=== PATIENT | male | born 1960 | race Caucasian/White ===

== ENCOUNTER 2020-12-26 12:29 | Emergency (ER) | payer OTHER ==
[2020-12-26 13:59] LABS: HEMOGLOBIN 14.6 gm/dl (14.0-17.5); RED BLOOD COUNT 4.81 M/UL (4.20-5.50); WHITE BLOOD COUNT 13.3 K/UL (4.5-11.0)
[2020-12-26] MEDS ORDERED: IBUPROFEN800 MG PO (15:55)
[2020-12-26] MEDS ORDERED: FLOMAX 0.4 MG0.4 MG PO (15:55)
[2020-12-26] MEDS ORDERED: ONDANSETRON ODT4 MG SL (15:55)
== END 2020-12-26 17:00 | disposition home or self-care (01) ==
LOC: ER1 12:29
PROVIDERS: Physician Assistant
DX: N13.2 Hydronephrosis with renal and ureteral calculous obstruction (principal); K44.9 Diaphragmatic hernia without obstruction or gangrene; K57.30 Diverticulosis of large intestine without perforation or abscess without bleeding
CPT/HCPCS: 80053; 81001; 83690; 85025; 96374; 96375; 99284; J1885; J2405